=== PATIENT | female | born 1985 | race African-American/Black ===

== ENCOUNTER 2018-11-04 05:51 | Day surgery (SDC) | payer OTHER ==
[2018-10-27 12:03] VITALS: BMI 47.5
[2018-11-04 07:03] VITALS: TEMP 97.9
[2018-11-04] MEDS ORDERED: BUPIVACAINE HCL/PF 0.5% (5MG/ML) 10 ML VIAL ONE (07:21)
[2018-11-04] MEDS ORDERED: MORPHINE SULFATE 10 MG/1 ML *VIAL ONE (07:24)
[2018-11-04] MEDS ORDERED: SUCCINYLCHOLINE CHLORIDE 200 MG/10 ML VIAL ONE (07:53)
[2018-11-04] MEDS ORDERED: PROPOFOL 20 ML ONE ×2 (07:53)
[2018-11-04] MEDS ORDERED: fentaNYL CITRATE 250 MCG/5 ML VIAL ONE (07:53)
[2018-11-04] MEDS ORDERED: ROCURONIUM BROMIDE 50 MG/5 ML VIAL ONE (07:54)
[2018-11-04] MEDS ORDERED: MIDAZOLAM HCL 2 MG/2 ML SINGLE DOSE VIAL ONE (07:54)
[2018-11-04] MEDS ORDERED: KETOROLAC TROMETHAMINE 30 MG/1 ML VIAL ONE (08:10)
[2018-11-04] MEDS ORDERED: ONDANSETRON 4 MG/2 ML VIAL ONE ×2 (08:10→09:13)
[2018-11-04] MEDS ORDERED: ceFAZolin SODIUM 1 GM VIAL ONE (08:10)
[2018-11-04] MEDS ORDERED: LIDOCAINE HCL/PF 2% SDV 5ML VIAL ONE (08:10)
[2018-11-04] MEDS ORDERED: DEXAMETHASONE SOD PHOSPHATE 4 MG/1 ML VIAL ONE (08:10)
[2018-11-04] MEDS ORDERED: NEOSTIGMINE METHYLSULFATE 0.5 MG/ML - 10 ML MDV ONE (08:30)
[2018-11-04] MEDS ORDERED: GLYCOPYRROLATE 0.2 MG/1 ML VIAL ONE (08:30)
[2018-11-04] MEDS ORDERED: ONDANSETRON 4 MG/2 ML VIAL IVPUSH PRN (08:59)
[2018-11-04] MEDS ORDERED: oxyCODONE HCL 5 MG TABLET PO PRN ×2 (08:59)
[2018-11-04] MEDS ORDERED: PROMETHAZINE HCL 25 MG/1 ML VIAL IVPUSH PRN (08:59)
--- NOTE | 2018-11-04 09:59 | OP ---
DATE OF OPERATION: 11/04/2018 PREOPERATIVE DIAGNOSIS: Torn medial meniscus of the right knee with internal derangement. 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 PROCEDURE PERFORMED: Operative arthroscopy of the right knee with partial medial and lateral meniscectomy, chondroplasty, synovectomy, joint debridement and microfracture technique for stem cell recruitment to the osteochondral defect on the medial femoral condyle. SURGEON: Dario Hudson M.D. SCIENTIFIC EDITOR: EARLENE Miranda ANESTHESIOLOGIST: ALETHEA Almanza ANESTHESIA: General anesthesia. PROCEDURE: The procedure consisted of the patient being brought in the operating room and gently transferred from the stretcher to the OR table with all bony prominences well-padded. The right leg was prepared and draped in sterile fashion. Patient was administered intravenous antibiotics and copious irrigation throughout the procedure to minimize the risk of infection. Complete risks, benefits and alternatives discussion was conducted with the patient, which was inclusive of, but not limited to infection, bleeding, , paralysis, increased pain, need for repeat surgery. Patient asked questions, understood the procedure and desired to proceed with surgical treatment. Following sterile preparation and draping of the right leg, an appropriate timeout was conducted identifying the type of surgery, site of surgery, surgeon, anesthesiologist. Following the appropriate timeout, the leg was exsanguinated using a sterile Esmarch bandage and the tourniquet was inflated to 350 mmHg. Suprapatellar and medial and lateral joint line portals were used to introduce the arthroscope and the arthroscopic instruments. The knee was examined. There was noted to be hypertrophic synovium in the suprapatellar pouch. A partial synovectomy was performed. Inferior surface of the patella had damage consistent with chondromalacia and this was smoothed using the pierre and the radiofrequency wand. The medial and lateral gutters were without plica or loose body. The medial femoral condyle was noted to have an osteochondral defect of approximately 1 cm in diameter and this was debrided and bony awls with appropriate angle and shaver were used to create an array of bleeding bone perforations to allow stem cells to come to fill the cartilage defect. Following this, the medial meniscus was examined. There was noted to be a tear of the posterior horn, which was dissected using the shaver and the radiofrequency wand. The intercondylar region was noted to have joint debris. Joint debridement was performed. The lateral meniscus was found to have a tear of the posterior horn and this was dissected using the shaver and the radiofrequency wand. The knee was then copiously irrigated with sterile saline irrigant. The cruciate ligaments were also examined and found to be intact. There was noted to be joint debris in the intercondylar region on re-examination. This was debrided with the shaver and the radiofrequency wand. Following this, the knee was copiously irrigated again and the wounds were closed with 4-0 undyed Vicryl followed by Steri-Strips, Xeroform, 4 x 4's, Combine, Elastoplast, Combine, sterile Webril, Jones bandage, and knee immobilizer. The tourniquet was deflated after approximately half an hour of tourniquet time. There were no intraoperative complications. Flip [id number]
[2018-11-04 10:56] VITALS: BP 106/64; PULSE 62
== END 2018-11-04 11:00 | disposition home or self-care (01) ==
LOC: FASU 05:51
PROVIDERS: ATTEND Orthopaedic Surgery
PROC: 0SBC4ZZ Excision of Right Knee Joint, Percutaneous Endoscopic Approach (ICD-10-PCS; 2018-11-04)
PROC: 0SBC4ZZ Excision of Right Knee Joint, Percutaneous Endoscopic Approach (ICD-10-PCS; 2018-11-04)
PROC: 0SBC4ZZ Excision of Right Knee Joint, Percutaneous Endoscopic Approach (ICD-10-PCS; 2018-11-04)
PROC: 0SBC4ZZ Excision of Right Knee Joint, Percutaneous Endoscopic Approach (ICD-10-PCS; principal; 2018-11-04 08:25)
DX: S83.241A Other tear of medial meniscus, current injury, right knee, initial encounter (principal); S83.281A Other tear of lateral meniscus, current injury, right knee, initial encounter; M67.261 Synovial hypertrophy, not elsewhere classified, right lower leg; M25.861 Other specified joint disorders, right knee; M24.10 Other articular cartilage disorders, unspecified site; X58.XXXA Exposure to other specified factors, initial encounter; Y93.9 Activity, unspecified; Y92.9 Unspecified place or not applicable
CPT/HCPCS: 84703; 94760